=== PATIENT | male | born 1945 | race Caucasian/White ===

== ENCOUNTER 2018-04-27 11:04 | Emergency (ER) | payer MEDICARE ==
[2018-04-27 11:22] VITALS: RESP 18; TEMP 98.4
--- NOTE | 2018-04-27 11:40 | ED ---
General Adult HPI - General Chief complaint: Weakness Stated complaint: weakness Time Seen by Provider: 04/27/18 11:10 Source: patient Mode of arrival: EMS Limitations: no limitations - History of Present Illness Initial comments: Dictation was produced using [employer] dictation software. please excuse any grammatical, word or spelling errors. Chief Complaint: 72-year-old male with past medical history of COPD, CHF, supplemental oxygen presents with altered mental status, generalized weakness and cough. History of Present Illness: She 72-year-old male with multiple complaints. He presents today via EMS. According to family patient has been acting abnormally for the past 24 hours. reports that he was difficult to arouse while in bed however finally he woke up. Family reports that patient has been acting abnormally and isn't a pleasantly good mood when his baseline is typically very sarcastic and unpleasant. Patient has been very sleepy recently. He also has been having a recent cough. Allegedly last night his oxygen fell off unknowingly. Patient is a poor historian at this time. The ROS documented in this emergency department record has been reviewed and confirmed by me. Those systems with pertinent positive or negative responses have been documented in the HPI. All other systems are other negative and/or noncontributory. PHYSICAL EXAM: General Impression: Alert and oriented x3, not in acute distress HEENT: Normocephalic atraumatic, extra-ocular movements intact, pupils equal and reactive to light bilaterally, mucous membranes moist. Cardiovascular: Heart regular rate and rhythm, S1&S2 audible, no murmurs, rubs or gallops Chest: Diffuse crackles Abdomen: Bowel sounds present, abdomen soft, non-tender, non-distended, no organomegaly Musculoskeletal: Pulses present and equal in all extremities, no peripheral edema Motor: Power 5/5 bilaterally, no focal deficits noted Neurological: CN II-XII grossly intact, mild drift to the right lower leg Skin: Intact with no visualized rashes Psych: Normal affect and mood ED course: 72-year-old male presents with hypoxia, altered mental status and generalized weakness. Vital signs upon arrival shows heart rate of 105, rest of vital signs within acceptable limits. EKG showed EKG findings to suggest ischemia patient also has elevated troponin. Patient started on low intensity heparin for NSTEMI.Laboratory evaluation obtained. Mild leukocytosis of 11.8. Coag panel unremarkable. Venous blood gas shows pCO2 of 92 however not acidotic showing respiratory acidosis with metabolic compensation. Patient has potassium 5.4. Carbon accident 47. Troponin 0.067, prematurity peptide of 2000. Urinalysis is unremarkable. Rapid urine drug screen is negative. Chest x-ray shows mild patchy multifocal infiltrates. Given medical history of productive cough and positive lung findings bilaterally patient started on antibiotics. Rate CT was obtained showing small area of indeterminate ischemia noted to the left internal capsule. Given that patient does have drift of the right lower extremity this could represent CVA. No clear time of onset. Patient given NIH of 3 however patient had a candidate for TPA at this time. Discussed patient case with Dr. Morgan who recommends that given the CT findings and neurologic changes that he should be transferred to [facility] for neurology evaluation. Discussed patient case with Dr. Wick at [facility] who is willing to accept admission. Vision heparin drip given pneumonia antibiotics and given aspirin. Family is agreeable with disposition. EKG interpretation: Ventricular rate 88 and normal sinus rhythm, QRS 96 QTc 442, . There are SC depressions in the precordial leads. - Related Data Home Medications Medication Instructions Recorded Confirmed Aspirin EC [Ecotrin Low Dose] 81 mg PO DAILY 04/27/18 04/27/18 Furosemide [Lasix] 40 mg PO DAILY 04/27/18 04/27/18 Lisinopril [Zestril] 2.5 mg PO DAILY 04/27/18 04/27/18 Metoprolol Succinate (ER) [Toprol 50 mg PO DAILY 04/27/18 04/27/18 Xl] Potassium Chloride ER [K-Dur 10] 10 meq PO BID 04/27/18 04/27/18 Allergies Allergy/AdvReac Type Severity Reaction Status Date / Time Iodinated Contrast- Oral and Allergy Unknown Verified 04/27/18 11:38 IV Dye Penicillins Allergy Unknown Verified 04/27/18 11:38 Review of Systems ROS Statement: Those systems with pertinent positive or pertinent negative responses have been documented in the HPI. ROS Other: All systems not noted in ROS Statement are negative. General Exam Limitations: no limitations Course Vital Signs 04/27/18 04/27/18 04/27/18 11:13 12:41 13:45 Temperature 98.4 F Pulse Rate 105 H 90 89 Respiratory 18 18 18 Rate Blood Pressure 108/64 92/75 104/65 O2 Sat by Pulse 98 93 L 99 Oximetry Medical Decision Making - Lab Data Result diagrams: 04/27/18 11:10 04/27/18 11:10 Lab Results 04/27/18 04/27/18 04/27/18 Range/Units 11:10 11:10 11:10 WBC 11.8 H (3.8-10.6) k/uL RBC 3.12 L (4.30-5.90) m/uL Hgb 10.3 L (13.0-17.5) gm/dL Hct 34.9 L (39.0-53.0) % MCV 111.9 H (80.0-100.0) fL MCH 33.0 (25.0-35.0) pg MCHC 29.5 L (31.0-37.0) g/dL RDW 17.9 H (11.5-15.5) % Plt Count 277 (150-450) k/uL Neutrophils % 86 % Lymphocytes % 6 % Monocytes % 5 % Eosinophils % 1 % Basophils % 0 % Neutrophils # 10.2 H (1.3-7.7) k/uL Lymphocytes # 0.7 L (1.0-4.8) k/uL Monocytes # 0.6 (0-1.0) k/uL Eosinophils # 0.1 (0-0.7) k/uL Basophils # 0.0 (0-0.2) k/uL Manual Slide Review Performed Hypochromasia Marked Anisocytosis Slight Macrocytosis Marked PT (9.0-12.0) sec INR (<1.2) VBG pH (7.31-7.41) VBG pCO2 (37-51) mmHg VBG HCO3 (24-28) mmol/L Sodium 136 L (137-145) mmol/L Potassium 5.4 H (3.5-5.1) mmol/L Chloride 86 L (98-107) mmol/L Carbon Dioxide 47 H* (22-30) mmol/L Anion Gap 3 mmol/L BUN 26 H (9-20) mg/dL Creatinine 0.41 L (0.66-1.25) mg/dL Est GFR (CKD-EPI)AfAm >90 (>60 ml/min/1.73 sqM) Est GFR (CKD-EPI)NonAf >90 (>60 ml/min/1.73 sqM) Glucose 110 H (74-99) mg/dL Plasma Lactic Acid Devang 1.5 (0.7-2.0) mmol/L Calcium 8.4 (8.4-10.2) mg/dL Magnesium 1.8 (1.6-2.3) mg/dL Total Bilirubin 1.2 (0.2-1.3) mg/dL AST 34 (17-59) U/L ALT 22 (21-72) U/L Alkaline Phosphatase 72 (38-126) U/L Creatine Kinase 31 L (55-170) U/L Troponin I (0.000-0.034) ng/mL NT-Pro-B Natriuret Pep pg/mL Total Protein 6.9 (6.3-8.2) g/dL Albumin 3.4 L (3.5-5.0) g/dL Urine Color Urine Appearance (Clear) Urine pH (5.0-8.0) Ur Specific Eek (1.001-1.035) Urine Protein (Negative) Urine Glucose (UA) (Negative) Urine Ketones (Negative) Urine Blood (Negative) Urine Nitrite (Negative) Urine Bilirubin (Negative) Urine Urobilinogen (<2.0) mg/dL Ur Leukocyte Esterase (Negative) Urine WBC (0-5) /hpf Ur Squamous Epith Cells (0-4) /hpf Hyaline Casts (0-2) /lpf Urine Mucus (None) /hpf Urine Opiates Screen (NotDetected) Ur Oxycodone Screen (NotDetected) Urine Methadone Screen (NotDetected) Ur Propoxyphene Screen (NotDetected) Ur Barbiturates Screen (NotDetected) U Tricyclic Antidepress (NotDetected) Ur Phencyclidine Scrn (NotDetected) Ur Amphetamines Screen (NotDetected) U Methamphetamines Scrn (NotDetected) U Benzodiazepines Scrn (NotDetected) Urine Cocaine Screen (NotDetected) U Marijuana (THC) Screen (NotDetected) Serum Alcohol <10 mg/dL 04/27/18 04/27/18 04/27/18 Range/Units 11:10 11:10 11:10 WBC (3.8-10.6) k/uL RBC (4.30-5.90) m/uL Hgb (13.0-17.5) gm/dL Hct (39.0-53.0) % MCV (80.0-100.0) fL MCH (25.0-35.0) pg MCHC (31.0-37.0) g/dL RDW (11.5-15.5) % Plt Count (150-450) k/uL Neutrophils % % Lymphocytes % % Monocytes % % Eosinophils % % Basophils % % Neutrophils # (1.3-7.7) k/uL Lymphocytes # (1.0-4.8) k/uL Monocytes # (0-1.0) k/uL Eosinophils # (0-0.7) k/uL Basophils # (0-0.2) k/uL Manual Slide Review Hypochromasia Anisocytosis Macrocytosis PT 11.2 (9.0-12.0) sec INR 1.1 (<1.2) VBG pH (7.31-7.41) VBG pCO2 (37-51) mmHg VBG HCO3 (24-28) mmol/L Sodium (137-145) mmol/L Potassium (3.5-5.1) mmol/L Chloride (98-107) mmol/L Carbon Dioxide (22-30) mmol/L Anion Gap mmol/L BUN (9-20) mg/dL Creatinine (0.66-1.25) mg/dL Est GFR (CKD-EPI)AfAm (>60 ml/min/1.73 sqM) Est GFR (CKD-EPI)NonAf (>60 ml/min/1.73 sqM) Glucose (74-99) mg/dL Plasma Lactic Acid Devang (0.7-2.0) mmol/L Calcium (8.4-10.2) mg/dL Magnesium (1.6-2.3) mg/dL Total Bilirubin (0.2-1.3) mg/dL AST (17-59) U/L ALT (21-72) U/L Alkaline Phosphatase (38-126) U/L Creatine Kinase (55-170) U/L Troponin I 0.067 H* (0.000-0.034) ng/mL NT-Pro-B Natriuret Pep 2180 pg/mL Total Protein (6.3-8.2) g/dL Albumin (3.5-5.0) g/dL Urine Color Urine Appearance (Clear) Urine pH (5.0-8.0) Ur Specific Eek (1.001-1.035) Urine Protein (Negative) Urine Glucose (UA) (Negative) Urine Ketones (Negative) Urine Blood (Negative) Urine Nitrite (Negative) Urine Bilirubin (Negative) Urine Urobilinogen (<2.0) mg/dL Ur Leukocyte Esterase (Negative) Urine WBC (0-5) /hpf Ur Squamous Epith Cells (0-4) /hpf Hyaline Casts (0-2) /lpf Urine Mucus (None) /hpf Urine Opiates Screen (NotDetected) Ur Oxycodone Screen (NotDetected) Urine Methadone Screen (NotDetected) Ur Propoxyphene Screen (NotDetected) Ur Barbiturates Screen (NotDetected) U Tricyclic Antidepress (NotDetected) Ur Phencyclidine Scrn (NotDetected) Ur Amphetamines Screen (NotDetected) U Methamphetamines Scrn (NotDetected) U Benzodiazepines Scrn (NotDetected) Urine Cocaine Screen (NotDetected) U Marijuana (THC) Screen (NotDetected) Serum Alcohol mg/dL 04/27/18 04/27/18 04/27/18 Range/Units 12:42 13:01 13:01 WBC (3.8-10.6) k/uL RBC (4.30-5.90) m/uL Hgb (13.0-17.5) gm/dL Hct (39.0-53.0) % MCV (80.0-100.0) fL MCH (25.0-35.0) pg MCHC (31.0-37.0) g/dL RDW (11.5-15.5) % Plt Count (150-450) k/uL Neutrophils % % Lymphocytes % % Monocytes % % Eosinophils % % Basophils % % Neutrophils # (1.3-7.7) k/uL Lymphocytes # (1.0-4.8) k/uL Monocytes # (0-1.0) k/uL Eosinophils # (0-0.7) k/uL Basophils # (0-0.2) k/uL Manual Slide Review Hypochromasia Anisocytosis Macrocytosis PT (9.0-12.0) sec INR (<1.2) VBG pH 7.36 (7.31-7.41) VBG pCO2 92 H* (37-51) mmHg VBG HCO3 51 H (24-28) mmol/L Sodium (137-145) mmol/L Potassium (3.5-5.1) mmol/L Chloride (98-107) mmol/L Carbon Dioxide (22-30) mmol/L Anion Gap mmol/L BUN (9-20) mg/dL Creatinine (0.66-1.25) mg/dL Est GFR (CKD-EPI)AfAm (>60 ml/min/1.73 sqM) Est GFR (CKD-EPI)NonAf (>60 ml/min/1.73 sqM) Glucose (74-99) mg/dL Plasma Lactic Acid Devang (0.7-2.0) mmol/L Calcium (8.4-10.2) mg/dL Magnesium (1.6-2.3) mg/dL Total Bilirubin (0.2-1.3) mg/dL AST (17-59) U/L ALT (21-72) U/L Alkaline Phosphatase (38-126) U/L Creatine Kinase (55-170) U/L Troponin I (0.000-0.034) ng/mL NT-Pro-B Natriuret Pep pg/mL Total Protein (6.3-8.2) g/dL Albumin (3.5-5.0) g/dL Urine Color Yellow Urine Appearance Clear (Clear) Urine pH 8.0 (5.0-8.0) Ur Specific Eek 1.014 (1.001-1.035) Urine Protein 1+ H (Negative) Urine Glucose (UA) Negative (Negative) Urine Ketones 1+ H (Negative) Urine Blood Negative (Negative) Urine Nitrite Negative (Negative) Urine Bilirubin Negative (Negative) Urine Urobilinogen 6.0 (<2.0) mg/dL Ur Leukocyte Esterase Negative (Negative) Urine WBC 2 (0-5) /hpf Ur Squamous Epith Cells <1 (0-4) /hpf Hyaline Casts 12 H (0-2) /lpf Urine Mucus Occasional H (None) /hpf Urine Opiates Screen Not Detected (NotDetected) Ur Oxycodone Screen Not Detected (NotDetected) Urine Methadone Screen Not Detected (NotDetected) Ur Propoxyphene Screen Not Detected (NotDetected) Ur Barbiturates Screen Not Detected (NotDetected) U Tricyclic Antidepress Not Detected (NotDetected) Ur Phencyclidine Scrn Not Detected (NotDetected) Ur Amphetamines Screen Not Detected (NotDetected) U Methamphetamines Scrn Not Detected (NotDetected) U Benzodiazepines Scrn Not Detected (NotDetected) Urine Cocaine Screen Not Detected (NotDetected) U Marijuana (THC) Screen Not Detected (NotDetected) Serum Alcohol mg/dL Disposition Clinical Impression: CVA (cerebral vascular accident), NSTEMI (non-ST elevated myocardial infarction ), Sepsis due to pneumonia Disposition: OTHER INSTITUTION NOT DEFINED Condition: Critical Referrals: Foster Gill MD [Primary Care Provider] - 1-2 days Time of Disposition: 15:00 - Out of Hospital Transfer - Req. Specs Out of Hospital Transfer - Requested Specifics: Other Emergency Center ([facility])
--- NOTE | 2018-04-27 12:02 | XR ---
EXAMINATION TYPE: XR chest 2V DATE OF EXAM: 04/27/2018 COMPARISON: None HISTORY: 72-year-old male pain and weakness TECHNIQUE: AP and lateral views FINDINGS: Heart mildly enlarged. Patchy mid and lower lung focal opacities. Mild hyperinflation. No pleural eff usion. IMPRESSION: 1. COPD with borderline heart size. 2. Mild patchy multifocal mid and lower lung opacities. Nonspecific findings, correlate for possible multifocal infiltrates including interstitial pneumonitis and pneumonia.
[2018-04-27 12:04] LABS: Anisocytosis Slight; Basophils % (A) 0 %; Eosinophils # (A) 0.1 k/uL (0-0.7); Eosinophils % (A) 1 %; HCT 34.9 % (39.0-53.0); HGB 10.3 gm/dL (13.0-17.5); Hypochromasia Marked; Lymphocytes # (A) 0.7 k/uL (1.0-4.8); Lymphocytes % (A) 6 %; MCHC 29.5 g/dL (31.0-37.0); MCV 111.9 fL (80.0-100.0); Macrocytosis Marked; Monocytes # (A) 0.6 k/uL (0-1.0); Monocytes % (A) 5 %; Neutrophils # (A) 10.2 k/uL (1.3-7.7); Neutrophils % (A) 86 %; Platelet Count 277 k/uL (150-450); RBC 3.12 m/uL (4.30-5.90); RDW 17.9 % (11.5-15.5); WBC 11.8 k/uL (3.8-10.6)
[2018-04-27 12:18] LABS: ALT 22 U/L (21-72); AST 34 U/L (17-59); Albumin 3.4 g/dL (3.5-5.0); Alcohol <10 mg/dL; Alkaline Phosphatase 72 U/L (38-126); Blood Urea Nitrogen 26 mg/dL (9-20); Calcium 8.4 mg/dL (8.4-10.2); Chloride 86 mmol/L (98-107); Creatine Kinase 31 U/L (55-170); Glucose 110 mg/dL (74-99); Magnesium 1.8 mg/dL (1.6-2.3); Sodium 136 mmol/L (137-145); Total Bilirubin 1.2 mg/dL (0.2-1.3); Total Protein 6.9 g/dL (6.3-8.2)
[2018-04-27 12:20] LABS: INR 1.1 (<1.2); Prothrombin Time 11.2 sec (9.0-12.0)
[2018-04-27 12:24] LABS: Anion Gap 3 mmol/L
[2018-04-27 12:30] LABS: Carbon Dioxide 47 mmol/L (22-30); Potassium 5.4 mmol/L (3.5-5.1)
--- NOTE | 2018-04-27 12:43 | CT ---
EXAMINATION TYPE: CT brain wo con DATE OF EXAM: 04/27/2018 COMPARISON: Pain HISTORY: Weakness CT DLP: 2194.4 mGycm Automated exposure control for dose reduction was used. FINDINGS: Mild generalized degenerative change. Low-attenuation the white matter is nonspecific. Area of low at tenuation in the left basal ganglia noted. Intracranial atherosclerotic changes. Calvarium intact. No acute hemorrhage or mass effect. IMPRESSION: 1. Degenerative and nonspecific white matter changes most typical remote microvascular ischemia. 2. Small focal area of low attenuation near the anterior limb of the internal capsule on the left ext ending into the basal ganglia. Small area of indeterminant ischemia not excluded. Correlate clinicall y. Correlate with MRI as clinically warranted. 3. No acute hemorrhage or mass effect.
[2018-04-27] MEDS ORDERED: AZITHROMYCIN 500 MG in SODIUM CHLORIDE 0.9% 250 ML IVPB STA (12:59)
[2018-04-27] MEDS ORDERED: VANCOMYCIN 1,500 MG in SODIUM CHLORIDE 0.9% 250 ML IVPB STA (13:00)
[2018-04-27] MEDS ORDERED: HEPARIN SODIUM,PORCINE 5,000 UNIT/ML 1 ML VIAL IV ONE (13:11)
[2018-04-27] MEDS ORDERED: HEPARIN SODIUM,PORCINE 5,000 UNIT/ML 1 ML VIAL IV PRN (13:11)
[2018-04-27] MEDS ORDERED: HEPARIN SOD,PORK IN 0.45% NACL 25,000 UNIT in 0.45% NACL 1 250ML.BAG IV SCH (13:15)
[2018-04-27 13:27] LABS: VBG PH 7.36 (7.31-7.41)
[2018-04-27 13:41] LABS: Appearance,Urine Clear (Clear); Bilirubin,Urine Negative (Negative); Blood,Urine Negative (Negative); Color,Urine Yellow; Glucose,Urine (UA) Negative (Negative); Hyaline Casts,Urine 12 /lpf (0-2); Ketones,Urine 1+ (Negative); Leukocyte Esterase,Urine Negative (Negative); Mucus,Urine Occasional /hpf; Nitrite,Urine Negative (Negative); Protein,Urine 1+ (Negative); Specific Gravity,Urine 1.014 (1.001-1.035); Squamous Epithelial Cell,Urine <1 /hpf (0-4)
[2018-04-27 13:50] LABS: Amphetamine Screen,Urine Not Detected (NotDetected); Barbiturate Screen,Urine Not Detected (NotDetected); Benzodiazepines Screen,Urine Not Detected (NotDetected); Cocaine Screen,Urine Not Detected (NotDetected); Methadone Screen, Urine Not Detected (NotDetected); Opiate Screen,Urine Not Detected (NotDetected); Oxycodone Screen, Urine Not Detected (NotDetected); Phencyclidine Screen,Urine Not Detected (NotDetected); Tricyclic Antidepressant,Urine Not Detected (NotDetected); Urn Cannabinoid Scrn Not Detected (NotDetected)
[2018-04-27] MEDS ORDERED: ASPIRIN 81 MG PO STA (14:27)
[2018-04-27 15:34] VITALS: PULSE 80
[2018-04-27 16:05] VITALS: BP 110/72
== END 2018-04-27 16:06 | disposition short-term general hospital (02) ==
LOC: EC 11:04
DX: I63.9 Cerebral infarction, unspecified (principal); I21.4 Non-ST elevation (NSTEMI) myocardial infarction; A40.3 Sepsis due to Streptococcus pneumoniae; J44.0 Chronic obstructive pulmonary disease with (acute) lower respiratory infection; R29.703 NIHSS score 3; D72.829 Elevated white blood cell count, unspecified; R94.31 Abnormal electrocardiogram [ECG] [EKG]; R79.89 Other specified abnormal findings of blood chemistry; Z88.0 Allergy status to penicillin; Z91.041 Radiographic dye allergy status; Z79.82 Long term (current) use of aspirin; Z79.899 Other long term (current) drug therapy
CPT/HCPCS: 36415; 93005; 83880; 80053; 82550; 82803; 83605; 83735; 84484; 85025; 85610; 81001; 87040; 80306; 71046; 70450; 99285; 96365; 96368; 96375; G0480; J3370; J1644 ×2; J0456; J0696; 80320

== ENCOUNTER 2019-01-26 13:15 | Observation (INO) | payer MEDICARE ==
[2019-01-26] MEDS ORDERED: methylPREDNISolone SOD SUCCI 125 MG/2 ML VIAL IV STA (13:26)
[2019-01-26] MEDS ORDERED: SODIUM CHLORIDE 0.9% 1,000 ML IV STA (13:26)
[2019-01-26] MEDS ORDERED: AZITHROMYCIN 500 MG in SODIUM CHLORIDE 0.9% 250 ML IVPB STA (13:26)
[2019-01-26] MEDS ORDERED: IPRATROPIUM 0.5 MG/2.5 ML NEBU INHALATION STA (13:26)
[2019-01-26] MEDS ORDERED: ALBUTEROL NEBULIZED 2.5 MG/3 ML INHALATION STA (13:26)
--- NOTE | 2019-01-26 13:29 | ED ---
General Adult HPI - General Chief complaint: Shortness of Breath Stated complaint: Sob Time Seen by Provider: 01/26/19 13:17 Source: patient, EMS Mode of arrival: EMS Limitations: no limitations - History of Present Illness Initial comments: Dictation was produced using [employer] dictation software. please excuse any grammatical, word or spelling errors. Chief Complaint: 73-year-old male with past medical history of COPD presents via EMS for hypoxic respiratory failure. History of Present Illness: 3-year-old male is currently being treated for pneumonia. Patient is a history of COPD. 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 Patient was evaluated by home visiting day care assistant out of hypoxic. EMS was called patient is transferred to the emergency department. Patient has been having cough productive of sputum. Patient states he has a history of COPD. He feels well currently. According EMS patient was hypoxic with measurements in the 80s. Patient requires oxygen at home. He is on 3 L cannula. He was reports patient has been hypoxic despite supplemental oxygen. Patient has any fever, chills or night sweats. The ROS documented in this emergency department record has been reviewed and confirmed by me. Those systems with pertinent positive or negative responses have been documented in the HPI. All other systems are other negative and/or noncontributory. PHYSICAL EXAM: General Impression: Alert and oriented x3, not in acute distress HEENT: Normocephalic atraumatic, extra-ocular movements intact, pupils equal and reactive to light bilaterally, mucous membranes moist. Cardiovascular: Heart regular rate and rhythm, S1&S2 audible, no murmurs, rubs or gallops Chest: Diminished lung sounds with diffuse wheezing. Abdomen: Bowel sounds present, abdomen soft, non-tender, non-distended, no orga nomegaly Musculoskeletal: Pulses present and equal in all extremities, no peripheral edema Motor: no focal deficits noted Neurological: CN II-XII grossly intact, no focal motor or sensory deficits noted Skin: Intact with no visualized rashes Psych: Normal affect and mood ED course: 73 y Old male presents with hypoxic respiratory failure. He denies positive for past medical history of COPD. Vital signs upon arrival shows 85% on room air. This is expected given that patient uses 3 L nasal cannula at home and is reliant on supplemental oxygen. Laboratory evaluation obtained. No leukocytosis. Hemoglobin is 9.8. This appears to be around patient's baseline. Coag panel unremarkable. Venous blood gas shows pH of 7.58 with a bicarb of 46. Sodium 134. Rest of labs are unremarkable. Influenza negative. Chest x-ray shows tiny cyst consistent with COPD. There is however basilar consolidation concerning for infiltrate. Patient is comfortable at bedside after given DuoNeb. Given patient's clinical presentation is concern for COPD exacerbation. Patient treated with symptom I said steroids. Discussed patient case with Dr. nguyen cecal was went except patient's care. We will have pulmonology on consultation as well. EKG interpretation: Ventricular rate 97, sinus rhythm, DC interval 176, QRS 92, QTc 444. No DC prolongation, no QTC prolongation, no ST or T-wave changes noted. Overall, this EKG is unremarkable - Related Data Home Medications Medication Instructions Recorded Confirmed Aspirin EC [Ecotrin Low Dose] 81 mg PO DAILY 04/27/18 01/26/19 Furosemide [Lasix] 40 mg PO DAILY 04/27/18 01/26/19 Lisinopril [Zestril] 2.5 mg PO DAILY 04/27/18 01/26/19 Potassium Chloride ER [K-Dur 10] 10 meq PO DAILY 04/27/18 01/26/19 Ipratropium-Albuterol Nebulize 1 vial INHALATION Q6H PRN 01/26/19 01/26/19 [Duoneb 0.5 mg-3 mg/3 ml Soln] Tiotropium 18 Mcg/Puff [Spiriva] 1 puff INHALATION RT-DAILY 01/26/19 01/26/19 Unspecified Laxative 1 tab PO DAILY PRN 01/26/19 01/26/19 Allergies Allergy/AdvReac Type Severity Reaction Status Date / Time Iodinated Contrast Media Allergy Unknown Verified 01/26/19 14:41 [Iodinated Contrast- Oral and IV Dye] Penicillins Allergy Unknown Verified 01/26/19 14:41 Review of Systems ROS Statement: Those systems with pertinent positive or pertinent negative responses have been documented in the HPI. ROS Other: All systems not noted in ROS Statement are negative. Past Medical History Past Medical History: Atrial Fibrillation, COPD History of Any Multi-Drug Resistant Organisms: None Reported Past Surgical History: Adenoidectomy, Appendectomy, Tonsillectomy Past Psychological History: No Psychological Hx Reported Smoking Status: Current every day smoker Past Alcohol Use History: None Reported Past Drug Use History: None Reported General Exam Limitations: no limitations Course Vital Signs 01/26/19 01/26/19 01/26/19 13:18 13:25 13:32 Temperature 98.5 F Pulse Rate 93 94 Respiratory 20 22 18 Rate Blood Pressure 108/74 O2 Sat by Pulse 85 L 92 L Oximetry 01/26/19 01/26/19 01/26/19 13:43 14:00 14:44 Temperature Pulse Rate 104 H 94 97 Respiratory 18 Rate Blood Pressure 96/54 O2 Sat by Pulse 92 L Oximetry Medical Decision Making - Lab Data Result diagrams: 01/26/19 13:40 01/26/19 13:40 Lab Results 01/26/19 01/26/19 01/26/19 Range/Units 13:40 13:40 13:40 WBC 9.5 (3.8-10.6) k/uL RBC 3.10 L (4.30-5.90) m/uL Hgb 9.8 L (13.0-17.5) gm/dL Hct 32.0 L (39.0-53.0) % MCV 103.2 H (80.0-100.0) fL MCH 31.4 (25.0-35.0) pg MCHC 30.4 L (31.0-37.0) g/dL RDW 15.0 (11.5-15.5) % Plt Count 351 (150-450) k/uL Neutrophils % (Manual) 79 % Lymphocytes % (Manual) 9 % Monocytes % (Manual) 12 % Neutrophils # (Manual) 7.51 (1.3-7.7) k/uL Lymphocytes # (Manual) 0.86 L (1.0-4.8) k/uL Monocytes # (Manual) 1.14 H (0-1.0) k/uL Nucleated RBCs 0 (0-0) /100 WBC Manual Slide Review Performed Hypochromasia Marked Macrocytosis Slight PT 9.9 (9.0-12.0) sec INR 0.9 (<1.2) APTT 26.8 (22.0-30.0) sec VBG pH (7.31-7.41) VBG pCO2 (37-51) mmHg VBG HCO3 (24-28) mmol/L Sodium 134 L (137-145) mmol/L Potassium 4.7 (3.5-5.1) mmol/L Chloride 81 L (98-107) mmol/L Carbon Dioxide 48 H* (22-30) mmol/L Anion Gap 5 mmol/L BUN 16 (9-20) mg/dL Creatinine 0.40 L (0.66-1.25) mg/dL Est GFR (CKD-EPI)AfAm >90 (>60 ml/min/1.73 sqM) Est GFR (CKD-EPI)NonAf >90 (>60 ml/min/1.73 sqM) Glucose 85 (74-99) mg/dL Calcium 8.5 (8.4-10.2) mg/dL Magnesium 1.8 (1.6-2.3) mg/dL Total Bilirubin 0.4 (0.2-1.3) mg/dL AST 21 (17-59) U/L ALT 17 L (21-72) U/L Alkaline Phosphatase 79 (38-126) U/L Troponin I (0.000-0.034) ng/mL Total Protein 7.4 (6.3-8.2) g/dL Albumin 3.5 (3.5-5.0) g/dL Influenza Type A RNA (Not Detectd) Influenza Type B (PCR) (Not Detectd) 01/26/19 01/26/19 01/26/19 Range/Units 13:40 15:05 Unknown WBC (3.8-10.6) k/uL RBC (4.30-5.90) m/uL Hgb (13.0-17.5) gm/dL Hct (39.0-53.0) % MCV (80.0-100.0) fL MCH (25.0-35.0) pg MCHC (31.0-37.0) g/dL RDW (11.5-15.5) % Plt Count (150-450) k/uL Neutrophils % (Manual) % Lymphocytes % (Manual) % Monocytes % (Manual) % Neutrophils # (Manual) (1.3-7.7) k/uL Lymphocytes # (Manual) (1.0-4.8) k/uL Monocytes # (Manual) (0-1.0) k/uL Nucleated RBCs (0-0) /100 WBC Manual Slide Review Hypochromasia Macrocytosis PT (9.0-12.0) sec INR (<1.2) APTT (22.0-30.0) sec VBG pH 7.58 H (7.31-7.41) VBG pCO2 48 (37-51) mmHg VBG HCO3 46 H (24-28) mmol/L Sodium (137-145) mmol/L Potassium (3.5-5.1) mmol/L Chloride (98-107) mmol/L Carbon Dioxide (22-30) mmol/L Anion Gap mmol/L BUN (9-20) mg/dL Creatinine (0.66-1.25) mg/dL Est GFR (CKD-EPI)AfAm (>60 ml/min/1.73 sqM) Est GFR (CKD-EPI)NonAf (>60 ml/min/1.73 sqM) Glucose (74-99) mg/dL Calcium (8.4-10.2) mg/dL Magnesium (1.6-2.3) mg/dL Total Bilirubin (0.2-1.3) mg/dL AST (17-59) U/L ALT (21-72) U/L Alkaline Phosphatase (38-126) U/L Troponin I <0.012 (0.000-0.034) ng/mL Total Protein (6.3-8.2) g/dL Albumin (3.5-5.0) g/dL Influenza Type A RNA Not Detected (Not Detectd) Influenza Type B (PCR) Not Detected (Not Detectd) Disposition Clinical Impression: COPD exacerbation, Respiratory failure with hypoxia Disposition: ADMITTED IP TO THIS HOSP Condition: Fair Referrals: Foster Gill MD [Primary Care Provider] - 1-2 days Decision Time: 15:31
[2019-01-26 14:24] LABS: INR 0.9 (<1.2); Partial Thromboplastin Time 26.8 sec (22.0-30.0); Prothrombin Time 9.9 sec (9.0-12.0)
[2019-01-26 14:26] LABS: HGB 9.8 gm/dL (13.0-17.5); Hypochromasia Marked; MCH 31.4 pg (25.0-35.0); MCHC 30.4 g/dL (31.0-37.0); MCV 103.2 fL (80.0-100.0); Macrocytosis Slight; Mean Platelet Volume 5.6; Platelet Count 351 k/uL (150-450); WBC 9.5 k/uL (3.8-10.6)
--- NOTE | 2019-01-26 14:35 | XR ---
EXAMINATION TYPE: XR chest 2V DATE OF EXAM: 01/26/2019 COMPARISON: 04/27/2018 TECHNIQUE: PA and lateral views submitted. HISTORY: Shortness of breath FINDINGS: Heart mildly enlarged. Patchy mid and lower lung focal opacities. Mild hyperinflation. No pleural eff usion. Diffuse hyperinflation suggestive of COPD. Chronic rib deformities noted. Atherosclerotic tidwell ge aorta. Degenerative changes finding. There is bibasilar subsegmental consolidation. Diffuse osteop enia with arthropathy of the shoulders and degenerative change of the spine. A pulmonary arteries are prominent correlate for pulmonary arterial hypertension. IMPRESSION: 1. COPD with basilar consolidation correlate for atelectasis versus infiltrate. Basilar bronchiectasi s also suspected. Findings are similar to the prior exam.
[2019-01-26 14:42] LABS: ALT 17 U/L (21-72); AST 21 U/L (17-59); African American GFR (CKD) >90 (>60 ml/min/1.73 sqM); Albumin 3.5 g/dL (3.5-5.0); Alkaline Phosphatase 79 U/L (38-126); Blood Urea Nitrogen 16 mg/dL (9-20); Calcium 8.5 mg/dL (8.4-10.2); Chloride 81 mmol/L (98-107); Glucose 85 mg/dL (74-99); Magnesium 1.8 mg/dL (1.6-2.3); Non-African American GFR(CKD) >90 (>60 ml/min/1.73 sqM); Potassium 4.7 mmol/L (3.5-5.1); Sodium 134 mmol/L (137-145); Total Bilirubin 0.4 mg/dL (0.2-1.3); Total Protein 7.4 g/dL (6.3-8.2)
[2019-01-26 14:49] LABS: Anion Gap 5 mmol/L
[2019-01-26 14:54] LABS: Lymphocytes # (M) 0.86 k/uL (1.0-4.8); Monocytes # (M) 1.14 k/uL (0-1.0); Neutrophils # (M) 7.51 k/uL (1.3-7.7); Neutrophils % (M) 79 %; Nucleated Red Blood Cells 0 /100 WBC (0-0); Total Cells Counted 100
[2019-01-26 14:56] LABS: Carbon Dioxide 48 mmol/L (22-30)
[2019-01-26 15:18] LABS: VBG PH 7.58 (7.31-7.41)
[2019-01-26] MEDS ORDERED: IPRATROPIUM-ALBUTEROL 3 ML NEB INHALATION PRN (15:27)
[2019-01-26] MEDS ORDERED: traMADol 50 MG TAB PO PRN (16:57)
[2019-01-26] MEDS ORDERED: MELATONIN 3 MG TABLET PO PRN (16:57)
[2019-01-26] MEDS ORDERED: ONDANSETRON 4 MG/2 ML VIAL IVP PRN (16:57)
[2019-01-26] MEDS ORDERED: NALOXONE 0.4 MG/ML 1 ML VIAL IV PRN (16:57)
[2019-01-26] MEDS ORDERED: ACETAMINOPHEN TAB 325 MG TAB PO PRN (16:57)
[2019-01-26] MEDS ORDERED: CALCIUM CARBONATE 500 MG CHEWABLE PO PRN (16:57)
--- NOTE | 2019-01-26 16:57 | P.HPIM ---
History of Present Illness H&P Date: 01/26/19 Chief Complaint: shortness of breath patient is 73-year-old male with a past medical history of COPD on 3 L nasal cannula chronically, prior cardiac history. 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 Influenza nasal swab was negative. Chest x-ray was consistent with COPD and atelectasis versus infiltrate.he was given bronchodilators, Zithromax, Solu-Medrol and the emergency department. Arrangements were made for admission for acute exacerbation of COPD. Patient seen and examined at bedside emergency department along with family. He states that he was feeling weak today and had a fall. He did not lose consciousness but his one came out. He has been becoming more and more weak and requiring a walker. He has a chronic difficulty breathing secondary to his C OPD. He has a chronic cough with the notes that it is sputum is more yellow than normal. He denies any unusual wheezing or shortness of breath. He has chronic constipation his last bowel movement was yesterday. He denies any chest pain. He suffered from lower extremity edema on the past but currently this is well controlled. No recent weight loss or weight gain. No other complaints currently. Review of Systems Pertinent positives and negatives as discussed in HPI, a complete review of systems was performed and all other systems are negative. Past Medical History Past Medical History: COPD Additional Past Medical History / Comment(s): possible congestive heart failure History of Any Multi-Drug Resistant Organisms: None Reported Past Surgical History: Adenoidectomy, Appendectomy, Tonsillectomy Additional Past Surgical History / Comment(s): multiple hernia repairs, bilateral cataract surgery, retinal detachment repair, left total hip arthroplasty Past Psychological History: No Psychological Hx Reported Smoking Status: Current every day smoker Past Alcohol Use History: Daily Past Drug Use History: None Reported Additional History: lives at home with his , no assistive devices other than a nebulizer and O2, willing to have home health care, used to smoke heavily but now down to 1-2 cigarettes daily, typically drinks 2-3 shots nightly. - Past Family History Father Family Medical History: Myocardial Infarction (NM) Additional Family Medical History / Comment(s): from myocardial infarction at age 67 Mother Additional Family Medical History / Comment(s): mom at age 84 from old age. Medications and Allergies Home Medications Medication Instructions Recorded Confirmed Type Aspirin EC [Ecotrin Low Dose] 81 mg PO DAILY 04/27/18 01/26/19 History Furosemide [Lasix] 40 mg PO DAILY 04/27/18 01/26/19 History Lisinopril [Zestril] 2.5 mg PO DAILY 04/27/18 01/26/19 History Potassium Chloride ER [K-Dur 10] 10 meq PO DAILY 04/27/18 01/26/19 History Ipratropium-Albuterol Nebulize 1 vial INHALATION Q6H PRN 01/26/19 01/26/19 History [Duoneb 0.5 mg-3 mg/3 ml Soln] Tiotropium 18 Mcg/Puff [Spiriva] 1 puff INHALATION RT-DAILY 01/26/19 01/26/19 History Unspecified Laxative 1 tab PO DAILY PRN 01/26/19 01/26/19 History Allergies Allergy/AdvReac Type Severity Reaction Status Date / Time Iodinated Contrast Media Allergy Unknown Verified 01/26/19 14:41 [Iodinated Contrast- Oral and IV Dye] Penicillins Allergy Unknown Verified 01/26/19 14:41 Physical Exam Osteopathic Statement: *. No significant issues noted on an osteopathic structural exam other than those noted in the History and Physical/Consult. Vitals: Vital Signs Temp Pulse Resp BP Pulse Ox 01/26/19 15:59 98.5 F 96 18 105/56 96 01/26/19 15:58 96 18 105/56 96 01/26/19 14:44 97 18 96/54 92 L 01/26/19 14:00 94 01/26/19 13:43 104 H 01/26/19 13:32 94 18 92 L 01/26/19 13:25 22 01/26/19 13:18 98.5 F 93 20 108/74 85 L Intake and Output 01/26/19 01/26/19 01/26/19 06:59 14:59 22:59 Other: Weight 74.843 kg General: non toxic, no distress, appears at stated age, normal weight Derm: skin thinning, multiple bruises bilateral, no unusual rashes/lesions, warm, dry Head: atraumatic, normocephalic, symmetric Eyes: EOMI, no lid lag, anicteric sclera, pupils equal round reactive to light ENT: Nose and ears atraumatic, no thrush, no pharyngeal erythema Neck: No thyromegaly, no cervical lymphadenopathy, trachea midline, supple Mouth: no lip lesion, mucus membranes dry Cardiovascular: S1S2 reg, no murmur, positive posterior tibial pulse bilateral, trace edema, capillary refill less than 2 seconds Lungs: decreased breath sounds bilaterally, absent at bases, no rhonchi, no rales , no accessory muscle use Abdominal: soft, nontender to palpation, no guarding, no appreciable organomegaly, normal bowel sounds Ext: no gross muscle atrophy, muscle strength 4 out of 5 in all 4 extremities grossly, no contractures, Neuro: CN II-XI grossly intact, light touch intact all 4 extremities, finger to nose within normal limits, Psych: Alert, oriented, appropriate affect Results CBC & Chem 7: 01/26/19 13:40 01/26/19 13:40 Labs: Abnormal Lab Results - Last 24 Hours (Table) 01/26/19 01/26/19 01/26/19 Range/Units 13:40 13:40 15:05 RBC 3.10 L (4.30-5.90) m/uL Hgb 9.8 L (13.0-17.5) gm/dL Hct 32.0 L (39.0-53.0) % MCV 103.2 H (80.0-100.0) fL MCHC 30.4 L (31.0-37.0) g/dL Lymphocytes # (Manual) 0.86 L (1.0-4.8) k/uL Monocytes # (Manual) 1.14 H (0-1.0) k/uL VBG pH 7.58 H (7.31-7.41) VBG HCO3 46 H (24-28) mmol/L Sodium 134 L (137-145) mmol/L Chloride 81 L (98-107) mmol/L Carbon Dioxide 48 H* (22-30) mmol/L Creatinine 0.40 L (0.66-1.25) mg/dL ALT 17 L (21-72) U/L Chest x-ray: report reviewed Thrombosis Risk Factor Assmnt - DVT/VTE Prophylaxis DVT/VTE Prophylaxis: Low risk, early ambulation encouraged Assessment and Plan Assessment: acute exacerbation of COPD with probable acute bronchitis -Zithromax -Steroids -fometarol, budenoside, duonebs - mucinex - flutter valve acute on chronic hypoxic respiratory failure -Treatment as above generalized weakness with mechanical fall -Check echocardiogram -TSH -B12 -PT/OT evaluation -Likely will need home health on discharge Tobacco abuse -Cessation -Nicotine replacement Daily alcohol use -Patient denies history of withdrawals in the past -CIWA protocol, thiamine, folic acid The patient is placed in observation with an anticipated less than 2 midnight stay for evaluation of acute exacerbation of COPD Surrogate decision-maker: CODE STATUS:DNR DVT prophylaxis: SCDs Anticipated discharge date: in AM Anticipated discharge place: Home with home health A total of 70 minutes was spent on this complex admission.
[2019-01-26] MEDS ORDERED: ALBUTEROL NEBULIZED 2.5 MG/3 ML INHALATION PRN (17:01)
[2019-01-26] MEDS ORDERED: LORazepam 2 MG/ML INJ IV PRN ×3 (17:05)
[2019-01-26] MEDS: INSULIN ASPART (NovoLOG) 100 UNIT/ML VIAL SQ SCH ×2 (17:36→21:15)
[2019-01-26] MEDS: THIAMINE 100 MG TAB PO SCH (17:41)
[2019-01-26] MEDS: NICOTINE 14MG/24HR PATCH TRANSDERM SCH (17:41)
[2019-01-26] MEDS: FORMOTEROL FUMARATE 20 MCG/2 ML NEBU INHALATION SCH (19:42)
[2019-01-26] MEDS: BUDESONIDE 1 MG/2 ML NEBU INHALATION SCH (19:42)
[2019-01-26] MEDS: IPRATROPIUM-ALBUTEROL 3 ML NEB INHALATION SCH (20:00)
[2019-01-26 20:15] LABS: Glucose,Whole Blood 270 mg/dL (75-99)
[2019-01-26] MEDS: guaiFENesin 600 MG TABLET.ER PO SCH (20:48)
[2019-01-26] MEDS: methylPREDNISolone SOD SUCCI 125 MG/2 ML VIAL IV SCH (23:19)
[2019-01-27 07:11] LABS: Glucose,Whole Blood 130 mg/dL (75-99)
[2019-01-27 07:43] LABS: African American GFR (CKD) >90 (>60 ml/min/1.73 sqM); Blood Urea Nitrogen 17 mg/dL (9-20); Calcium 8.3 mg/dL (8.4-10.2); Chloride 83 mmol/L (98-107); Glucose 121 mg/dL (74-99); Non-African American GFR(CKD) >90 (>60 ml/min/1.73 sqM); Sodium 135 mmol/L (137-145)
[2019-01-27] MEDS: INSULIN ASPART (NovoLOG) 100 UNIT/ML VIAL SQ SCH ×4 (07:46→21:10)
[2019-01-27 07:50] LABS: Basophils # (A) 0.1 k/uL (0-0.2); Basophils % (A) 1 %; Eosinophils % (A) 0 %; HCT 29.6 % (39.0-53.0); HGB 8.8 gm/dL (13.0-17.5); Hypochromasia Marked; Lymphocytes # (A) 0.5 k/uL (1.0-4.8); Lymphocytes % (A) 10 %; MCH 30.8 pg (25.0-35.0); MCHC 29.9 g/dL (31.0-37.0); MCV 103.1 fL (80.0-100.0); Macrocytosis Slight; Mean Platelet Volume 6.4; Monocytes # (A) 0.1 k/uL (0-1.0); Monocytes % (A) 3 %; Neutrophils % (A) 85 %; Platelet Count 320 k/uL (150-450); RBC 2.87 m/uL (4.30-5.90); RDW 15.6 % (11.5-15.5); WBC 4.8 k/uL (3.8-10.6)
[2019-01-27 07:51] LABS: Anion Gap 2 mmol/L
[2019-01-27 07:52] LABS: Carbon Dioxide 50 mmol/L (22-30)
[2019-01-27] MEDS: IPRATROPIUM-ALBUTEROL 3 ML NEB INHALATION SCH ×4 (07:53→19:25)
[2019-01-27] MEDS: FUROSEMIDE 40 MG TAB PO SCH (07:56)
[2019-01-27] MEDS: MULTIVITAMINS, THERA 1 EACH TAB PO SCH (07:56)
[2019-01-27] MEDS: POTASSIUM CHLORIDE ER 10 MEQ TAB.ER.PRT PO SCH (07:56)
[2019-01-27] MEDS: FOLIC ACID 1 MG TAB PO SCH (07:56)
[2019-01-27] MEDS: LISINOPRIL 2.5 MG TAB PO SCH (07:56)
[2019-01-27] MEDS: guaiFENesin 600 MG TABLET.ER PO SCH ×2 (07:56→21:10)
[2019-01-27] MEDS: THIAMINE 100 MG TAB PO SCH ×2 (07:56→17:18)
[2019-01-27] MEDS: methylPREDNISolone SOD SUCCI 125 MG/2 ML VIAL IV SCH ×2 (07:57→16:32)
[2019-01-27] MEDS: NICOTINE 14MG/24HR PATCH TRANSDERM SCH (07:57)
[2019-01-27] MEDS: ASPIRIN 81 MG PO SCH (07:57)
[2019-01-27] MEDS: FORMOTEROL FUMARATE 20 MCG/2 ML NEBU INHALATION SCH ×2 (08:02→19:39)
[2019-01-27] MEDS: BUDESONIDE 1 MG/2 ML NEBU INHALATION SCH ×2 (08:02→19:24)
[2019-01-27] MEDS: AZITHROMYCIN 500 MG TAB PO SCH (08:24)
[2019-01-27 08:49] LABS: T4, Free (Free Thyroxine) 1.18 ng/dL (0.78-2.19)
[2019-01-27] MEDS ORDERED: predniSONE 20 MG TAB PO SCH (09:00)
[2019-01-27] MEDS ORDERED: POLYETHYLENE GLYCOL 3350 17 GM POWD.PACK PO STA (10:07)
[2019-01-27 11:54] LABS: Glucose,Whole Blood 135 mg/dL (75-99)
--- NOTE | 2019-01-27 12:00 | ECHOF ---
Referral Reason:chf MEASUREMENTS -------- HEIGHT: 180.3 cm WEIGHT: 74.8 kg BP: 106/68 RVIDd: 3.3 cm (< 3.3) IVSd: 1.3 cm (0.6 - 1.1) LVIDd: 4.8 cm (3.9 - 5.3) LVPWd: 1.2 cm (0.6 - 1.1) IVSs: 1.8 cm LVIDs: 1.6 cm LVPWs: 2.0 cm Ao Diam: 4.0 cm (2.0 - 3.7) AV Cusp: 2.1 cm (1.5 - 2.6) LA Diam: 3.1 cm (2.7 - 3.8) MV EXCURSION: 19.176 mm (> 18.000) MV EF SLOPE: 89 mm/s (70 - 150) EPSS: 0.6 cm MV E Frank: 0.69 m/s MV DecT: 207 ms MV A Frank: 0.62 m/s MV E/A Ratio: 1.12 RAP: 5.00 mmHg RVSP: 34.03 mmHg FINDINGS -------- Sinus rhythm. This was a technically difficult study with suboptimal views. Study taken from [facility] due to c opd. The left ventricular size is normal. There is mild concentric left ventricular hypertrophy. Overa ll left ventricular systolic function is normal with, an EF between 55 - 60 %. The right ventricle is mildly enlarged. The left atrial size is normal. The right atrial size is normal. Interatrial and interventricular septum intact. The aortic valve is trileaflet and appears structurally normal. The mitral valve is normal. There is trace mitral regurgitation. The tricuspid valve appears structurally normal. Mild tricuspid regurgitation present. Right vent ricular systolic pressure is normal at < 35 mmHg. There is no pulmonic regurgitation present. The aortic root is dilated measuring 4.0 cm. IVC Not well visulized. There is no pericardial effusion. CONCLUSIONS -------- 1. Sinus rhythm. 2. This was a technically difficult study with suboptimal views. 3. Study taken from [facility] due to copd. 4. The left ventricular size is normal. 5. There is mild concentric left ventricular hypertrophy. 6. Overall left ventricular systolic function is normal with, an EF between 55 - 60 %. 7. The right ventricle is mildly enlarged. 8. The left atrial size is normal. 9. The right atrial size is normal. 10. Interatrial and interventricular septum intact. 11. The aortic valve is trileaflet and appears structurally normal. 12. The mitral valve is normal. 13. There is trace mitral regurgitation. 14. The tricuspid valve appears structurally normal. 15. Mild tricuspid regurgitation present. 16. Right ventricular systolic pressure is normal at < 35 mmHg. 17. There is no pulmonic regurgitation present. 18. The aortic root is dilated measuring 4.0 cm 19. IVC Not well visulized. 20. There is no pericardial effusion. TITLE CURATIVE SPECIALIST: Ame Parr RDCS
[2019-01-27 16:47] LABS: Glucose,Whole Blood 154 mg/dL (75-99)
--- NOTE | 2019-01-27 17:11 | P.PN ---
Subjective Progress Note Date: 01/27/19 Patient is examined at bedside having paroxysm of cough with productive yellow sputum, reports that he wears approximately 2 L at baseline complain of generalized weakness and some pleuritic right rib discomfort denies any abdominal pain or nausea. No acute events overnight patient noted to have severe metabolic alkalosis with serum bicarb at 50 today. Hemoglobin 8.8, influenza a and B are negative Objective - Vital Signs Vital signs: Vital Signs Temp 98.3 F 01/27/19 15:00 Pulse 90 01/27/19 16:16 Resp 16 01/27/19 15:00 BP 114/53 01/27/19 15:00 Pulse Ox 90 L 01/27/19 15:00 Intake & Output 01/26/19 01/27/19 01/27/19 18:59 06:59 18:59 Intake Total 180 100 Output Total 400 500 Balance 180 -300 -500 Weight 74.843 kg Intake: Oral 180 100 Output: Urine 400 500 Other: Voiding Method Urinal Urinal - Exam Constitutional: No acute distress, conversant, pleasant Eyes: Anicteric sclerae, moist conjunctiva, no lid-lag, PERRLA ENMT: NC/AT,Oropharynx clear, no erythema, exudates Neck:Supple, FROM, no masses, or JVD, No carotid bruits; No thyromegaly Lungs: Diminished in the bases with poor aeration tender to palpation in the right anterior ribs Cardiovascular: Heart regular in rate and rhythm, No murmurs, gallops, or rubs no peripheral edema Abdominal: Soft Nontender, nom distended, no guarding, no rebound or rigidity, Normoactive bowel sounds No hepatomegaly, No splenomegaly, No palpable mass No abdominal wall hernia noted Skin: Normal temperature, tone, texture, turgor, No induration No subcutaneous nodules, No rash, lesions, No ulcers Extremities:No digital cyanosis No clubbing, Pedal pulses intact and symmetrical Radial pulses intact and symmetrical Normal gait and station, No calf tenderness Psychiatric: Alert and oriented to person, place and time, Appropriate affect Intact judgement Neuro: Muscles Strength 5/5 in all 4 extremities, Sensation to light touch grossly present throughout, Cranial nerves II-XII grossly intact. No focal sensory deficits - Labs CBC & Chem 7: 01/27/19 06:44 01/27/19 06:44 Labs: Abnormal Lab Results - Last 24 Hours (Table) 01/26/19 01/27/19 01/27/19 Range/Units 20:14 06:44 06:44 RBC 2.87 L (4.30-5.90) m/uL Hgb 8.8 L (13.0-17.5) gm/dL Hct 29.6 L (39.0-53.0) % MCV 103.1 H (80.0-100.0) fL MCHC 29.9 L (31.0-37.0) g/dL RDW 15.6 H (11.5-15.5) % Lymphocytes # 0.5 L (1.0-4.8) k/uL Sodium 135 L (137-145) mmol/L Chloride 83 L (98-107) mmol/L Carbon Dioxide 50 H* (22-30) mmol/L Creatinine 0.37 L (0.66-1.25) mg/dL Glucose 121 H (74-99) mg/dL POC Glucose (mg/dL) 270 H (75-99) mg/dL Calcium 8.3 L (8.4-10.2) mg/dL TSH 0.124 L (0.465-4.680) mIU/L 01/27/19 01/27/19 01/27/19 Range/Units 07:09 11:52 16:43 RBC (4.30-5.90) m/uL Hgb (13.0-17.5) gm/dL Hct (39.0-53.0) % MCV (80.0-100.0) fL MCHC (31.0-37.0) g/dL RDW (11.5-15.5) % Lymphocytes # (1.0-4.8) k/uL Sodium (137-145) mmol/L Chloride (98-107) mmol/L Carbon Dioxide (22-30) mmol/L Creatinine (0.66-1.25) mg/dL Glucose (74-99) mg/dL POC Glucose (mg/dL) 130 H 135 H 154 H (75-99) mg/dL Calcium (8.4-10.2) mg/dL TSH (0.465-4.680) mIU/L Microbiology - Last 24 Hours (Table) 01/26/19 13:40 Blood Culture - Preliminary Blood No Growth after 24 hours Assessment and Plan Assessment: acute exacerbation of COPD with probable acute bronchitis -Zithromax -Steroids -fometarol, budenoside, duonebs - mucinex - flutter valve * Plan for ABG today and two-view chest x-ray tomorrow acute on chronic hypoxic respiratory failure -Treatment as above generalized weakness with mechanical fall -Echocardiogram indicating preserved LVEF 55-60 without any significant valvular abnormalities -TSH low at 0.124 with normal free T4 -B12 -PT/OT evaluation -Likely will need home health on discharge Metabolic alkalosis - Likely secondary to steroids - We'll repeat ABG today Tobacco abuse -Cessation -Nicotine replacement Daily alcohol use -Patient denies history of withdrawals in the past -CIWA protocol, thiamine, folic acid The patient is placed in observation with an anticipated less than 2 midnight stay for evaluation of acute exacerbation of COPD Surrogate decision-maker: CODE STATUS:DNR DVT prophylaxis: SCDs Anticipated discharge date: in AM Anticipated discharge place: Home with home health A total of 70 minutes was spent on this complex admission.
[2019-01-27 17:23] LABS: ABG Base Excess 26.7 mmol/L; ABG Oxygen Saturation 87.1 % (94-97); ABG PH 7.42 (7.35-7.45); ABG TCO2 54 mmol/L (19-24); Allen Test Performed? Yes
[2019-01-27 17:34] LABS: ABG HCO3 51 mmol/L (21-25); ABG PCO2 80 mmHg (35-45); ABG PO2 52 mmHg (83-108)
[2019-01-27 20:28] LABS: Glucose,Whole Blood 145 mg/dL (75-99)
[2019-01-28] MEDS: methylPREDNISolone SOD SUCCI 125 MG/2 ML VIAL IV SCH ×2 (00:16→09:55)
[2019-01-28 06:52] LABS: Glucose,Whole Blood 122 mg/dL (75-99)
[2019-01-28] MEDS: INSULIN ASPART (NovoLOG) 100 UNIT/ML VIAL SQ SCH (07:19)
[2019-01-28] MEDS: FORMOTEROL FUMARATE 20 MCG/2 ML NEBU INHALATION SCH (07:34)
[2019-01-28] MEDS: BUDESONIDE 1 MG/2 ML NEBU INHALATION SCH (07:34)
[2019-01-28] MEDS: IPRATROPIUM-ALBUTEROL 3 ML NEB INHALATION SCH (07:34)
[2019-01-28 07:42] VITALS: BP 134/82; RESP 12; TEMP 98.2
[2019-01-28 07:53] VITALS: PULSE 106
[2019-01-28] MEDS: guaiFENesin 600 MG TABLET.ER PO SCH (08:07)
[2019-01-28] MEDS: FOLIC ACID 1 MG TAB PO SCH (08:07)
[2019-01-28] MEDS: ASPIRIN 81 MG PO SCH (08:08)
[2019-01-28] MEDS: MULTIVITAMINS, THERA 1 EACH TAB PO SCH (08:08)
[2019-01-28] MEDS: LISINOPRIL 2.5 MG TAB PO SCH (08:08)
[2019-01-28] MEDS: FUROSEMIDE 40 MG TAB PO SCH (08:08)
[2019-01-28] MEDS: POTASSIUM CHLORIDE ER 10 MEQ TAB.ER.PRT PO SCH (08:08)
[2019-01-28] MEDS: AZITHROMYCIN 500 MG TAB PO SCH (08:08)
[2019-01-28] MEDS: THIAMINE 100 MG TAB PO SCH (08:08)
[2019-01-28] MEDS ORDERED: POLYETHYLENE GLYCOL 3350 17 GM POWD.PACK PO SCH (09:00)
[2019-01-28] MEDS: NICOTINE 14MG/24HR PATCH TRANSDERM SCH (10:01)
--- NOTE | 2019-01-28 10:12 | XR ---
EXAMINATION TYPE: XR chest 2V DATE OF EXAM: 01/28/2019 COMPARISON: Prior chest x-ray 01/26/2019 HISTORY: COPD TECHNIQUE: Frontal and lateral views of the chest are obtained. FINDINGS: Lucency noted beneath the hemidiaphragms. Interstitium is increased. There is patchy basila r density, no evident pneumothorax or pleural effusion. Prominence of pulmonary artery suggests pulmo nary artery hypertension. The cardiac silhouette size is within normal limits. The osseous structur es are intact. There are coronary artery calcifications. IMPRESSION: Lucency beneath the hemidiaphragms may be related to bowel loops, correlate and consider alternate imaging as indicated if pneumoperitoneum is suspected. Correlate for basilar pneumonia truman vanessa atelectasis. A [place] critical message alert has been initiated for Chilango Boswell MD via the [employer] System on 01/28/2019 10:10 AM. This message alert has been sent to Chilango Boswell MD v rogelio the preferences provided by the clinician for the receipt of Radiology Critical Findings. Message ID [id number].
[2019-01-28 11:06] LABS: African American GFR (CKD) >90 (>60 ml/min/1.73 sqM); Blood Urea Nitrogen 21 mg/dL (9-20); Calcium 8.6 mg/dL (8.4-10.2); Chloride 85 mmol/L (98-107); Glucose 128 mg/dL (74-99); Non-African American GFR(CKD) >90 (>60 ml/min/1.73 sqM); Potassium 4.9 mmol/L (3.5-5.1); Sodium 132 mmol/L (137-145)
[2019-01-28 11:14] LABS: Anion Gap 3 mmol/L
[2019-01-28 11:17] LABS: Carbon Dioxide 44 mmol/L (22-30)
--- NOTE | 2019-01-28 12:53 | CONS ---
CONSULTATION PULMONARY/CRITICAL CARE CONSULTATION: DATE OF SERVICE: 01/28/2019 This is a 73-year-old male who sees a physician down in [facility] or [facility]. 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 He is 73 years of age. He comes in with complaints of increasing shortness of breath, brought in by EMS. He does have a history of COPD and does use home . Apparently, the patient was evaluated at home by a visiting nurse or something like that and EMS was called and transferred the patient to the emergency department where he was complaining of shortness of breath, chest tightness, coughing, wheezing, chest congestion and yellow phlegm production. He was initially seen in the emergency room on January 26. We were just consulted this morning. The patient states that he has been smoking for probably 60 years or so. He continues to smoke. He smoked up to 3 and 4 packs a day at times. Anyway, the patient was evaluated in the emergency room, admitted with a diagnosis of COPD exacerbation. Today talking to him, he looks pretty comfortable. He is on a couple L of oxygen. The patient does have some mild conversational dyspnea. He is coughing up some yellow phlegm, but he wants to be discharged home. He states he noticed that there is nothing that can be done for him. He also is a DNR. He would not want mechanical ventilation which I think is a good idea. The patient looks much older than his stated age and obviously has pretty severe COPD. . HOME MEDICATIONS: Include aspirin, Lasix, Zestril, potassium, DuoNeb, Spiriva, and laxative. ALLERGIES: INCLUDE IVP DYE and PENICILLIN. MEDICAL HISTORY: COPD and atrial fibrillation. He also apparently has a history of hypertension. PAST SURGICAL HISTORY: Includes appendectomy, adenoidectomy, and tonsillectomy. SOCIAL HISTORY: Positive for ongoing tobacco use at more than 1 pack a day. He continues to smoke. Has no intention of stopping smoking. He denies any alcohol use or illicit drug use. FAMILY HISTORY: Noncontributory. Apparently their mother or father or both had COPD as well. REVIEW OF SYSTEMS: CONSTITUTIONAL: Weakness. NEUROLOGIC: Negative. HEENT: Negative. CARDIOVASCULAR: Negative. PULMONARY: Shortness of breath, chest tightness, wheezing, cough, chest congestion and phlegm production. GI: Negative. : Negative. RHEUMATOLOGIC: Negative. IMMUNOLOGIC: Negative. ENDOCRINOLOGIC: Negative. DERMATOLOGIC: Negative. Current vital signs are reviewed, temperature is 98.2, heart rate is 87, respiratory rate 12, blood pressure 134/82 mean 99, and 4 L saturation 94% to 95%. Appears in no acute distress. The patient does have some mild conversational dyspnea. HEENT: Examination is grossly unremarkable. Nasal O2 in place. NECK: Supple. Full range of motion. No adenopathy. CARDIOVASCULAR: Examination reveals regular rhythm and rate. Heart rate is in the mid 90s. S1, S2 normal. Heart sounds are distant. LUNGS: Reveal severely diminished breath sounds. There is some mild expiratory rhonchi and wheezes. There is prolongation on forced maneuver. Adventitious lung sounds are more prominent on forced maneuver. ABDOMEN: Soft. Bowel sounds are heard. No masses or tenderness. EXTREMITIES: Intact. No cyanosis, clubbing, or edema. SKIN: Without rash. NEUROLOGIC: Examination is brief but nonfocal. LABS: Reviewed. Currently, white count 4.8, hemoglobin 8.8, hematocrit 29.6, platelet count 320, 000. PT, INR and PTT all normal. Blood gases done on 35% FiO2, show a PO2 of 852, pCO2 of 80 and pH is 7.42. Sodium is 132, potassium 4.9, chloride 85, CO2 is 44, anion gap is 3. BUN and creatinine were 21 and 0.48. Troponins were negative. Liver function tests were okay. Free T4 was normal. Influenza studies were negative. Chest x-ray shows diffuse patchy basilar densities consistent with either infiltrate or atelectasis. There is no pneumothorax or pleural effusion. There is obvious COPD. The lungs are hyperlucent and rather large. There also may be some air under the diaphragm on the right side. Medications are reviewed. The patient was on the all appropriate medications including short-acting beta agonist, short-acting muscarinic antagonist, long-acting beta agonist, inhaled corticosteroids, systemic steroids, and antibiotics. Microbiologic studies including sputum and blood sampling are negative. ASSESSMENT: 1. Chronic obstructive pulmonary disease exacerbation, potentially complicated by either purulent tracheobronchitis and/or patchy bronchopneumonia. 2. History of severe chronic obstructive pulmonary disease, with chronic hypoxemic and hypercapnic respiratory failure. 3. Probable secondary pulmonary hypertension and cor pulmonale. 4. History of ongoing tobacco use with nicotine addiction. 5. History of atrial fibrillation. 6. Chronic anemia. 7. Well-compensated hypercapnic respiratory failure. 8. Anorexia/cachexia syndrome of chronic illness. PLAN: The patient is doing better. The patient would like to be discharged home. That is not up to me. I think it is a borderline discharge if he is discharged. I think he should stay 1 more day. Anyway, the patient does have the appropriate medications at home. We do recommend a combination of long-acting beta agonist/inhaled corticosteroid complement he has at home. She should be discharged home. If he is discharged on prednisone 40 mg a day for 4 days, 30 mg a day for 4 days, 20 mg a day for 4 days, 10 mg a day for 4 days, then stop. In addition, he should be discharged home on an antibiotic and we recommended a fluoroquinolones. I did give him a card just in case he wants to come see me. Additional recommendations and suggestions are forthcoming. Prognosis is guarded. MMODL / IJN: [id number] /
== END 2019-01-28 11:26 | disposition home or self-care (01) ==
LOC: EC 13:15 → UNDOADMIN 15:27 → 4SSUR 15:27 → INTOOBSV 15:27 → UNDODISIN 01-28 11:26
PROVIDERS: ADMIT Internal Medicine; ATTEND Internal Medicine
DX: J44.1 Chronic obstructive pulmonary disease with (acute) exacerbation (principal); J96.21 Acute and chronic respiratory failure with hypoxia; J96.22 Acute and chronic respiratory failure with hypercapnia; E87.3 Alkalosis; R64 Cachexia; K59.09 Other constipation; D64.9 Anemia, unspecified; T38.0X5A Adverse effect of glucocorticoids and synthetic analogues, initial encounter; Z66 Do not resuscitate; Z96.642 Presence of left artificial hip joint; F17.200 Nicotine dependence, unspecified, uncomplicated; I27.29 Other secondary pulmonary hypertension; I48.91 Unspecified atrial fibrillation; Z68.22 Body mass index [BMI] 22.0-22.9, adult; Z79.82 Long term (current) use of aspirin; Z79.899 Other long term (current) drug therapy; Z82.49 Family history of ischemic heart disease and other diseases of the circulatory system; Z82.5 Family history of asthma and other chronic lower respiratory diseases; Z99.81 Dependence on supplemental oxygen; Z88.0 Allergy status to penicillin; Z91.041 Radiographic dye allergy status; Z90.49 Acquired absence of other specified parts of digestive tract; Z90.89 Acquired absence of other organs; I10 Essential (primary) hypertension
CPT/HCPCS: 96361; 96365; 96375; 99285; 36415; 94640 ×6; 36600; 94760 ×3; 93005; 93306; 97162; 97535; 97166; 84439; 80053; 80048 ×2; 84443; 82607; 82805; 82803; 83735; 84484; 85025 ×2; 85610; 85730; 87040; 87070; 87205; 87502; 71046 ×2; G0378 ×3; S4990 ×3; J2930 ×3; J0456; 96376